=== PATIENT | female | born 1990 | race American Indian/Alaskan Native ===

== ENCOUNTER 2020-08-30 20:35 | Inpatient (IN) | payer MEDICAID ==
[2020-08-30] MEDS ORDERED: LIDOCAINE (2%) 20 MG/1 ML VIAL 20 ML MDV INFILTRATI ONE (22:46)
[2020-08-30] MEDS ORDERED: MINERAL OIL 30 ML ORAL LIQD PO PRN (22:46)
[2020-08-30] MEDS ORDERED: TERBUTALINE 1 MG/1 ML INJ SUB-Q PRN (22:46)
[2020-08-30] MEDS ORDERED: OXYTOCIN DRIP 30,000 MILLIUNITS/500 ML BAG IV ONE (23:01)
--- NOTE | 2020-08-30 23:11 | History and Physical Report ---
History of Present Illness Date of examination: 08/30/20 Date of admission: 08/30/20 20:35 Chief complaint: Here for IOL. History of present illness: 29 year old presents for scheduled induction of labor. Patient received care at [facility] and records are available. LMP 12/01/2019. EDC 09/06/2020. significant for the following: Obesity (BMI 55), anemia (supplemented with iron), chronic hypertension (on Labetalol and LDA), asthma, rubella nonimmune, gestational diabetes (pt. noncompliant with SMBG and ADA diet). labs are as follows: AB positive, antibody screen negative, rubella nonimmune, pap smear normal, hepatitis B surface antigen negative, HIV negative, RPR nonreactive, varicella immune, chlamydia negative, gonorrhea negative, trichomonas negative, hemoglobin electrophoresis AA, AFP negative, 1 hour sugar test 195, 3 hour OGTT 101, 205, 168, 68, GBS negative. 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 denies: smoking, alcohol abuse, prescription drug abuse, IV drug use - Obstetrical History Expected Date of Delivery: 09/06/20 Actual Gestation: 39 Week(s) 0 Day(s) : 1 Para: 0 Hx # Term Pregnancies: 0 Number of Pregnancies: 0 Spontaneous Abortions: 0 Induced : 0 Number of Living Children: 0 Medications and Allergies Allergies Allergy/AdvReac Type Severity Reaction Status Date / Time No Known Allergies Allergy Verified 08/30/20 22:07 Active Meds: Active Medications Ephedrine Sulfate (Ephedrine Sulfate) 10 mg IV Q2M PRN PRN Reason: Hypotension Fentanyl (Sublimaze) 100 mcg IV Q2H PRN PRN Reason: Pain,Severe (7-10) LABOR PAIN Oxytocin/Sodium Chloride (Pitocin/Ns 30 Unit/500ml) 30 units in 500 mls @ 2 mls/hr IV TITR HILARY; Protocol Lactated Ringer's (Lactated Ringers) 1,000 mls @ 125 mls/hr IV DIRECT HILARY Labetalol HCl (Labetalol) 100 mg PO BID HILARY Mineral Oil (Mineral Oil) 30 ml PO QHS PRN PRN Reason: Constipation Terbutaline Sulfate (Brethine) 0.25 mg SUB-Q ONCE PRN PRN Reason: Hyperstimulation/Hypertonicity Review of Systems All systems: negative (occasional contractions) - Vital Signs Vital signs: Vital Signs Pulse BP 121 H 136/82 08/30/20 21:10 08/30/20 21:10 Temp Pulse Resp BP Pulse Ox 98.7 F 105 H 18 124/87 08/30/20 21:29 08/30/20 22:56 08/30/20 21:29 08/30/20 22:56 - Physical Exam Abdomen: Positive: normal appearance, soft. Negative: distention, tenderness, guarding, rigidity Genitourinary (Female): Positive: normal external genitalia, normal perenium. Negative: perineal/vulvar lesions (no lesions noted on careful exam with bright light upon admission) Vagina: Positive: normal moisture Uterus: Positive: enlarged. Negative: tender Anus/Rectum: Positive: normal perianal skin Extremities: Positive: normal - Obstetrical FHR: category 1 Uterine Contraction Monitor Mode: External Cervical Dilatation: 0.5 Cervical Effacement Percentage: 30 station: -4 Uterine Contraction Pattern: Irregular Uterine Contraction Intensity: Mild Results Abnormal lab results 08/30/20 Range/Units 22:36 POC Glucose 127 H (70-105) mg/dL All other labs normal. Assessment and Plan A: at 39 weeks. Gestational diabetes. Chronic hypertension. Class 3 obesity. GBS negative. P: Admit. Continuous EFM. Cervical ripening and induction of labor. Discussed with patient risks and benefits of cervical ripening and induction of labor. Patient consented to cervical ripening and induction of labor. Consult with MD adams: this patient.
[2020-08-30] MEDS: LACTATED RINGERS 1,000 ML IV SCH (23:23)
[2020-08-31 00:12] LABS: Hematocrit 37.5 % (30.3-42.9); Hemoglobin 12.4 gm/dl (10.1-14.3); Mean Corpuscular HGB Conc 33 % (30-34); Mean Corpuscular Volume 77 fl (79-97); Platelet Count 311 K/mm3 (140-440); Red Blood Count 4.88 M/mm3 (3.65-5.03); Red Cell Distribution Width 16.7 % (13.2-15.2)
[2020-08-31] MEDS: OXYTOCIN DRIP 30 UNITS/500 ML BAG IV SCH ×2 (00:17→15:41)
[2020-08-31 00:37] LABS: Alanine Aminotransferase 22 units/L (7-56); Albumin 3.2 g/dL (3.9-5); Blood Urea Nitrogen 8 mg/dL (7-17); Calcium 9.6 mg/dL (8.4-10.2); Hemolysis Index 0
[2020-08-31 00:47] LABS: BUN/Creatinine Ratio 16
--- NOTE | 2020-08-31 02:03 | Ultrasound Report ---
Obstetrical ultrasound follow-up INDICATION: presentation. well-being FINDINGS: The biparietal diameter measures 8.9 cm measuring 36 weeks and 1 day. Head circumference me asures 31.7 cm corresponding to 35 weeks and 4 days. The abdominal circumference measures 34.4 cm cor responding to 38 weeks and 2 days. Femur length is 6.5 cm corresponding to 33 weeks and 2 days. The estimated weight is 2978 g. The fetus is in the cephalic position. HUMBERTO is decreased measuri ng 4.5 cm. heart rate is 141 bpm. The cervical length was measured at 4.1 cm IMPRESSION: Decreased HUMBERTO 4.5 cm, as outlined above. Signer Name: Giovanny Harvey MD Signed: 08/31/2020 1:58 AM Workstation Name: [id number]
[2020-08-31] MEDS: LACTATED RINGERS 1,000 ML IV SCH ×3 (04:37→21:09)
--- NOTE | 2020-08-31 12:40 | Progress Note ---
Assessment and Plan A: at 39 1/7 weeks gestation. GDM. MO. CHTN. P: Continue cervical ripening. Continuous EFM. Subjective - Subjective Date of service: 08/31/20 Principal diagnosis: at 39 weeks, 1 day gestation; IOL Interval history: 39 weeks, 1 day gestation. Being induced for chronic hypertension, MO, and GDM. Patient reports: movement normal, contractions, no new complaints, no loss of fluid, no vaginal bleeding Objective - Vital Signs Vital Signs: Vital Signs - 12hr 08/31/20 08/31/20 08/31/20 00:55 01:26 02:04 Temperature Pulse Rate 92 H 100 H 97 H Blood Pressure 116/64 107/56 134/86 08/31/20 08/31/20 08/31/20 02:25 02:56 03:26 Temperature Pulse Rate 95 H 97 H 94 H Blood Pressure 121/71 112/64 130/66 08/31/20 08/31/20 08/31/20 04:00 04:26 04:56 Temperature 98.2 F Pulse Rate 97 H 100 H 100 H Blood Pressure 101/59 111/62 115/63 08/31/20 08/31/20 08/31/20 05:26 05:57 06:26 Temperature Pulse Rate 106 H 100 H 97 H Blood Pressure 118/60 126/67 118/60 08/31/20 08/31/20 08/31/20 06:55 07:26 07:56 Temperature Pulse Rate 96 H 107 H 103 H Blood Pressure 143/91 138/81 129/84 08/31/20 08/31/20 08/31/20 08:26 08:56 09:35 Temperature Pulse Rate 88 97 H 110 H Blood Pressure 127/69 109/68 136/76 08/31/20 08/31/20 08/31/20 09:56 10:14 10:26 Temperature Pulse Rate 97 H 94 H 106 H Blood Pressure 133/76 123/72 112/57 08/31/20 08/31/20 08/31/20 10:56 11:25 11:56 Temperature Pulse Rate 103 H 103 H 96 H Blood Pressure 136/75 121/71 121/60 08/31/20 12:27 Temperature Pulse Rate 94 H Blood Pressure 130/57 - Exam Abdomen: Present: normal appearance, soft. Absent: distention, tenderness, guarding, rigidity Uterus: Present: normal, fundal height above umbilicus. Absent: tenderness FHR: category 1 Uterine Contraction Monitor Mode: External Uterine Contraction Pattern: Irregular Uterine Contraction Intensity: Mild - Labs Labs: Abnormal Labs 08/30/20 08/30/20 08/30/20 22:36 22:53 23:53 WBC 11.4 H MCV 77 L MCH 25 L RDW 16.7 H Carbon Dioxide 18 L Creatinine 0.5 L Glucose 130 H POC Glucose 127 H Alkaline Phosphatase 142 H Lactate Dehydrogenase 193 H Total Protein 6.0 L Albumin 3.2 L Laboratory Results - last 24 hr 08/30/20 08/30/20 08/30/20 22:36 22:46 22:53 WBC RBC Hgb Hct MCV MCH MCHC RDW Plt Count Sodium 137 Potassium 4.0 Chloride 103.1 Carbon Dioxide 18 L Anion Gap 20 BUN 8 Creatinine 0.5 L Estimated GFR > 60 BUN/Creatinine Ratio 16 Glucose 130 H POC Glucose 127 H Hemoglobin A1c Calcium 9.6 Total Bilirubin 0.20 AST 21 ALT 22 Alkaline Phosphatase 142 H Lactate Dehydrogenase 193 H Total Protein 6.0 L Albumin 3.2 L Albumin/Globulin Ratio 1.1 Blood Type AB POSITIVE Antibody Screen Negative 08/30/20 08/30/20 08/31/20 22:53 23:53 07:28 WBC 11.4 H RBC 4.88 Hgb 12.4 Hct 37.5 MCV 77 L MCH 25 L MCHC 33 RDW 16.7 H Plt Count 311 Sodium Potassium Chloride Carbon Dioxide Anion Gap BUN Creatinine Estimated GFR BUN/Creatinine Ratio Glucose POC Glucose 83 Hemoglobin A1c 5.9 Calcium Total Bilirubin AST ALT Alkaline Phosphatase Lactate Dehydrogenase Total Protein Albumin Albumin/Globulin Ratio Blood Type Antibody Screen 08/31/20 11:46 WBC RBC Hgb Hct MCV MCH MCHC RDW Plt Count Sodium Potassium Chloride Carbon Dioxide Anion Gap BUN Creatinine Estimated GFR BUN/Creatinine Ratio Glucose POC Glucose 85 Hemoglobin A1c Calcium Total Bilirubin AST ALT Alkaline Phosphatase Lactate Dehydrogenase Total Protein Albumin Albumin/Globulin Ratio Blood Type Antibody Screen
--- NOTE | 2020-08-31 22:59 | Event Note ---
Date: 08/31/20 SVE /-3/soft/posterior.
--- NOTE | 2020-09-01 09:06 | Progress Note ---
Assessment and Plan A: at 39 weeks, 2 days gestation. IOL for chronic hypertension, MO, and GDM. P: Continuous EFM. Continue cervical ripening/IOL. Monitor blood pressure and blood sugars. Subjective - Subjective Date of service: 09/01/20 Principal diagnosis: at 39 weeks, 2 day gestation; IOL Interval history: 39 weeks, 2 day gestation. Being induced for chronic hypertension, MO, and GDM. Patient reports: movement normal, contractions, no new complaints, no loss of fluid, no vaginal bleeding Objective - Vital Signs Vital Signs: Vital Signs - 12hr 08/31/20 08/31/20 08/31/20 22:09 22:14 22:19 Temperature Pulse Rate 99 H 117 H 120 H Respiratory Rate Blood Pressure 140/77 O2 Sat by Pulse 99 99 99 Oximetry 08/31/20 08/31/20 08/31/20 22:24 22:26 22:29 Temperature Pulse Rate 117 H 111 H 106 H Respiratory Rate Blood Pressure 109/55 O2 Sat by Pulse 97 98 Oximetry 08/31/20 08/31/20 08/31/20 22:34 22:39 22:44 Temperature Pulse Rate 116 H 107 H 111 H Respiratory Rate Blood Pressure O2 Sat by Pulse 99 99 99 Oximetry 08/31/20 08/31/20 08/31/20 22:49 22:54 22:56 Temperature Pulse Rate 107 H 111 H 100 H Respiratory Rate Blood Pressure 118/56 O2 Sat by Pulse 100 100 Oximetry 08/31/20 08/31/20 08/31/20 22:59 23:04 23:09 Temperature Pulse Rate 105 H 113 H 102 H Respiratory Rate Blood Pressure O2 Sat by Pulse 100 100 100 Oximetry 08/31/20 08/31/20 08/31/20 23:14 23:19 23:24 Temperature Pulse Rate 104 H 109 H 101 H Respiratory Rate Blood Pressure O2 Sat by Pulse 98 98 99 Oximetry 08/31/20 08/31/20 08/31/20 23:26 23:29 23:34 Temperature Pulse Rate 104 H 114 H 104 H Respiratory Rate Blood Pressure 108/52 O2 Sat by Pulse 100 100 Oximetry 08/31/20 08/31/20 08/31/20 23:39 23:44 23:49 Temperature Pulse Rate 106 H 106 H 107 H Respiratory Rate Blood Pressure O2 Sat by Pulse 99 98 99 Oximetry 1008/31/20 08/31/20 23:54 23:56 23:59 Temperature Pulse Rate 104 H 102 H 106 H Respiratory Rate Blood Pressure 120/58 O2 Sat by Pulse 100 100 Oximetry 09/01/20 09/01/20 09/01/20 00:04 00:09 00:14 Temperature Pulse Rate 110 H 110 H 104 H Respiratory Rate Blood Pressure O2 Sat by Pulse 100 100 100 Oximetry 09/01/20 09/01/20 09/01/20 00:19 00:24 00:26 Temperature Pulse Rate 106 H 77 101 H Respiratory Rate Blood Pressure 109/57 O2 Sat by Pulse 100 82 L Oximetry 09/01/20 09/01/20 09/01/20 00:29 00:34 00:39 Temperature Pulse Rate 105 H 105 H 97 H Respiratory Rate Blood Pressure O2 Sat by Pulse 100 99 100 Oximetry 09/01/20 09/01/20 09/01/20 00:44 00:49 00:54 Temperature Pulse Rate 102 H 105 H 111 H Respiratory Rate Blood Pressure O2 Sat by Pulse 100 100 100 Oximetry 09/01/20 09/01/20 09/01/20 00:56 00:59 01:01 EST Temperature Pulse Rate 105 H 105 H 103 H Respiratory Rate Blood Pressure 112/62 O2 Sat by Pulse 100 100 Oximetry 09/01/20 09/01/20 09/01/20 01:04 EST 01:06 EST 01:09 EST Temperature Pulse Rate 102 H 97 H 98 H Respiratory Rate Blood Pressure O2 Sat by Pulse 100 99 100 Oximetry 09/01/20 09/01/20 09/01/20 01:11 EST 01:16 EST 01:21 EST Temperature Pulse Rate 113 H 95 H 115 H Respiratory Rate Blood Pressure O2 Sat by Pulse 100 100 91 Oximetry 09/01/20 09/01/20 09/01/20 01:25 EST 01:26 EST 01:28 EST Temperature Pulse Rate 104 H 104 H Respiratory Rate Blood Pressure 115/62 120/65 O2 Sat by Pulse 100 91 Oximetry 09/01/20 09/01/20 09/01/20 01:31 EST 01:36 EST 01:41 EST Temperature Pulse Rate 99 H 102 H 102 H Respiratory Rate Blood Pressure O2 Sat by Pulse 100 99 100 Oximetry 09/01/20 09/01/20 09/01/20 01:46 EST 01:51 EST 01:55 EST Temperature Pulse Rate 101 H 102 H 105 H Respiratory Rate Blood Pressure 118/60 O2 Sat by Pulse 100 100 Oximetry 09/01/20 09/01/20 09/01/20 01:56 EST 02:00 02:05 Temperature Pulse Rate 105 H 111 H 102 H Respiratory Rate Blood Pressure O2 Sat by Pulse 100 100 100 Oximetry 09/01/20 09/01/20 09/01/20 02:10 02:15 02:20 Temperature Pulse Rate 99 H 97 H 94 H Respiratory Rate Blood Pressure O2 Sat by Pulse 100 99 100 Oximetry 09/01/20 09/01/20 09/01/20 02:25 02:26 02:30 Temperature Pulse Rate 103 H 96 H 94 H Respiratory Rate Blood Pressure 124/65 O2 Sat by Pulse 100 100 Oximetry 09/01/20 09/01/20 09/01/20 02:35 02:40 02:45 Temperature Pulse Rate 92 H 95 H 93 H Respiratory Rate Blood Pressure O2 Sat by Pulse 100 100 99 Oximetry 09/01/20 09/01/20 09/01/20 02:50 02:55 02:56 Temperature Pulse Rate 108 H 105 H 101 H Respiratory Rate Blood Pressure 121/75 O2 Sat by Pulse 100 100 Oximetry 09/01/20 09/01/20 09/01/20 03:00 03:05 03:10 Temperature Pulse Rate 94 H 96 H 96 H Respiratory Rate Blood Pressure O2 Sat by Pulse 99 99 100 Oximetry 09/01/20 09/01/20 09/01/20 03:11 03:15 03:27 Temperature Pulse Rate 103 H 125 H Respiratory Rate Blood Pressure O2 Sat by Pulse 83 L 100 100 Oximetry 09/01/20 09/01/20 09/01/20 03:32 03:37 03:42 Temperature Pulse Rate 111 H 119 H 101 H Respiratory Rate Blood Pressure O2 Sat by Pulse 99 99 99 Oximetry 09/01/20 09/01/20 09/01/20 03:47 03:52 03:57 Temperature Pulse Rate 103 H 105 H 115 H Respiratory Rate Blood Pressure O2 Sat by Pulse 100 100 100 Oximetry 09/01/20 09/01/20 09/01/20 04:02 04:07 04:12 Temperature Pulse Rate 100 H 101 H 100 H Respiratory Rate Blood Pressure O2 Sat by Pulse 100 100 100 Oximetry 09/01/20 09/01/2020 04:17 04:22 04:26 Temperature Pulse Rate 101 H 102 H 102 H Respiratory Rate Blood Pressure 129/58 O2 Sat by Pulse 99 99 Oximetry 09/01/20 09/01/20 09/01/20 04:27 04:32 04:37 Temperature Pulse Rate 103 H 96 H 99 H Respiratory Rate Blood Pressure O2 Sat by Pulse 100 99 99 Oximetry 09/01/20 09/01/20 09/01/20 04:42 04:47 04:52 Temperature Pulse Rate 99 H 103 H 97 H Respiratory Rate Blood Pressure O2 Sat by Pulse 99 98 99 Oximetry 09/01/20 09/01/20 09/01/20 04:56 04:57 05:02 Temperature Pulse Rate 105 H 104 H 92 H Respiratory Rate Blood Pressure 125/71 O2 Sat by Pulse 100 100 Oximetry 09/01/20 09/01/20 09/01/20 05:07 05:12 05:17 Temperature Pulse Rate 101 H 102 H 93 H Respiratory Rate Blood Pressure O2 Sat by Pulse 99 99 98 Oximetry 09/01/20 09/01/20 09/01/20 05:22 05:31 05:36 Temperature Pulse Rate 93 H 104 H 98 H Respiratory Rate Blood Pressure O2 Sat by Pulse 100 100 100 Oximetry 09/01/20 09/01/20 09/01/20 05:41 05:46 05:51 Temperature Pulse Rate 103 H 98 H 101 H Respiratory Rate Blood Pressure O2 Sat by Pulse 100 100 99 Oximetry 09/01/20 09/01/20 09/01/20 05:56 06:01 06:06 Temperature Pulse Rate 100 H 99 H 92 H Respiratory Rate Blood Pressure 109/58 O2 Sat by Pulse 100 99 100 Oximetry 09/01/20 09/01/20 09/01/20 06:11 06:16 06:21 Temperature Pulse Rate 94 H 104 H 97 H Respiratory Rate Blood Pressure O2 Sat by Pulse 100 100 99 Oximetry 09/01/20 09/01/20 09/01/20 06:26 06:31 06:36 Temperature Pulse Rate 97 H 93 H 98 H Respiratory Rate Blood Pressure 109/60 O2 Sat by Pulse 100 100 98 Oximetry 09/01/20 09/01/20 09/01/20 06:41 06:46 06:56 Temperature Pulse Rate 93 H 107 H 103 H Respiratory Rate Blood Pressure 129/59 O2 Sat by Pulse 100 99 100 Oximetry 09/01/20 09/01/20 09/01/20 07:01 07:06 07:11 Temperature Pulse Rate 106 H 98 H 98 H Respiratory Rate Blood Pressure O2 Sat by Pulse 99 99 99 Oximetry 09/01/20 09/01/20 09/01/20 07:12 07:16 07:21 Temperature 98.4 F Pulse Rate 98 H 104 H Respiratory 20 Rate Blood Pressure O2 Sat by Pulse 99 99 Oximetry 09/01/20 09/01/20 09/01/20 07:25 07:26 07:31 Temperature Pulse Rate 96 H 97 H 102 H Respiratory Rate Blood Pressure 118/68 O2 Sat by Pulse 99 99 Oximetry 09/01/20 09/01/20 09/01/20 07:36 07:41 07:46 Temperature Pulse Rate 96 H 95 H 105 H Respiratory Rate Blood Pressure O2 Sat by Pulse 100 100 98 Oximetry 09/01/20 09/01/20 09/01/20 07:51 07:56 08:01 Temperature Pulse Rate 105 H 108 H 98 H Respiratory Rate Blood Pressure 132/83 O2 Sat by Pulse 100 100 99 Oximetry 09/01/20 09/01/20 09/01/20 08:06 08:14 08:19 Temperature Pulse Rate 103 H 108 H Respiratory Rate Blood Pressure O2 Sat by Pulse 98 100 99 Oximetry 09/01/20 09/01/20 09/01/20 08:24 08:25 08:29 Temperature Pulse Rate 96 H 107 H 98 H Respiratory Rate Blood Pressure 129/73 O2 Sat by Pulse 99 98 Oximetry 09/01/20 09/01/20 09/01/20 08:34 08:39 08:44 Temperature Pulse Rate 103 H 94 H 96 H Respiratory Rate Blood Pressure O2 Sat by Pulse 98 98 98 Oximetry 09/01/20 09/01/20 08:49 08:57 Temperature Pulse Rate 102 H 112 H Respiratory Rate Blood Pressure 134/77 O2 Sat by Pulse 100 Oximetry - Exam Narrative Exam: Patient declined cervical exam this morning. Abdomen: Present: normal appearance, soft. Absent: distention, tenderness, guarding, rigidity Uterus: Present: normal, fundal height above umbilicus. Absent: tenderness Uterine Contraction Monitor Mode: External Uterine Contraction Pattern: Irregular Uterine Contraction Intensity: Moderate - Labs Labs: Abnormal Labs 10/08/30/20 08/30/20 22:36 22:53 23:53 WBC 11.4 H MCV 77 L MCH 25 L RDW 16.7 H Carbon Dioxide 18 L Creatinine 0.5 L Glucose 130 H POC Glucose 127 H Alkaline Phosphatase 142 H Lactate Dehydrogenase 193 H Total Protein 6.0 L Albumin 3.2 L 08/31/20 19:36 WBC MCV MCH RDW Carbon Dioxide Creatinine Glucose POC Glucose 69 L Alkaline Phosphatase Lactate Dehydrogenase Total Protein Albumin Laboratory Results - last 24 hr 08/31/20 08/31/20 08/31/20 11:46 15:19 19:36 POC Glucose 85 97 69 L 08/31/20 09/01/20 09/01/20 21:23 01:45 EST 05:57 POC Glucose 90 98 78
[2020-09-01] MEDS: LACTATED RINGERS 1,000 ML IV SCH ×2 (10:55→18:27)
--- NOTE | 2020-09-01 14:13 | Event Note ---
Date: 09/01/20 SVE /-3/soft/posterior.
[2020-09-01] MEDS: OXYTOCIN DRIP 30 UNITS/500 ML BAG IV SCH (20:00)
[2020-09-01] MEDS ORDERED: hydrOXYzine PAMOATE 25 MG CAP PO ONE (21:00)
[2020-09-02] MEDS: LACTATED RINGERS 1,000 ML IV SCH ×4 (02:34→16:28)
[2020-09-02] MEDS: fentaNYL 100 MCG/2 ML INJ IV PRN ×2 (04:58→07:22)
--- NOTE | 2020-09-02 10:36 | Progress Note ---
Assessment and Plan A:IUP @ 39 01/05 Category I Tracing Morbid Obesity GDM Poor Pain Control GBS Negative P: Continue Pitocin Induction AROM Internals X 2 Stadol IV/ Prepare for Epidural Continue Accuchecks as ordered Subjective - Subjective Date of service: 09/02/20 Principal diagnosis: at 39 weeks, 2 day gestation; IOL Patient reports: movement normal, contractions (Poor Pain Control; Re questing epidural anesthesia), no new complaints, no loss of fluid, no vaginal bleeding Objective - Vital Signs Vital Signs: Vital Signs - 12hr 09/01/20 09/01/20 09/01/20 22:34 22:39 23:01 Temperature Pulse Rate 97 H 97 H 111 H Respiratory Rate Blood Pressure Blood Pressure [Right] O2 Sat by Pulse 99 100 100 Oximetry 09/01/20 09/01/20 09/01/20 23:06 23:11 23:16 Temperature Pulse Rate 101 H 102 H 104 H Respiratory Rate Blood Pressure Blood Pressure [Right] O2 Sat by Pulse 99 100 100 Oximetry 09/01/20 09/01/20 09/01/20 23:21 23:26 23:31 Temperature Pulse Rate 104 H 102 H 102 H Respiratory Rate Blood Pressure 117/64 Blood Pressure [Right] O2 Sat by Pulse 100 97 99 Oximetry 09/01/20 09/01/20 09/01/20 23:36 23:41 23:46 Temperature Pulse Rate 99 H 101 H 110 H Respiratory Rate Blood Pressure Blood Pressure [Right] O2 Sat by Pulse 100 99 100 Oximetry 09/01/20 09/01/20 09/01/20 23:51 23:55 23:56 Temperature Pulse Rate 95 H 93 H 97 H Respiratory Rate Blood Pressure 118/68 Blood Pressure [Right] O2 Sat by Pulse 98 97 Oximetry 09/02/20 09/02/20 09/02/20 00:01 00:06 00:14 Temperature Pulse Rate 107 H 97 H 110 H Respiratory Rate Blood Pressure Blood Pressure [Right] O2 Sat by Pulse 99 100 100 Oximetry 09/02/20 09/02/20 09/02/20 00:19 00:24 00:25 Temperature Pulse Rate 97 H 105 H 94 H Respiratory Rate Blood Pressure 113/60 Blood Pressure [Right] O2 Sat by Pulse 98 99 Oximetry 09/02/20 09/02/20 09/02/20 00:29 00:34 00:39 Temperature Pulse Rate 98 H 103 H 98 H Respiratory Rate Blood Pressure Blood Pressure [Right] O2 Sat by Pulse 98 98 98 Oximetry 09/02/20 09/02/20 09/02/20 00:44 00:49 00:54 Temperature Pulse Rate 100 H 104 H 102 H Respiratory Rate Blood Pressure Blood Pressure [Right] O2 Sat by Pulse 99 99 91 Oximetry 09/02/20 09/02/20 09/02/20 00:56 00:59 01:04 Temperature Pulse Rate 96 H 98 H 99 H Respiratory Rate Blood Pressure 124/67 Blood Pressure [Right] O2 Sat by Pulse 97 97 Oximetry 09/02/20 09/02/20 09/02/20 01:09 01:14 01:19 Temperature Pulse Rate 100 H 102 H 92 H Respiratory Rate Blood Pressure Blood Pressure [Right] O2 Sat by Pulse 96 97 99 Oximetry 09/02/20 09/02/20 09/02/20 01:24 01:26 01:29 Temperature Pulse Rate 100 H 96 H 100 H Respiratory Rate Blood Pressure 148/65 Blood Pressure [Right] O2 Sat by Pulse 97 97 Oximetry 09/02/20 09/02/20 09/02/20 01:34 01:39 01:44 Temperature Pulse Rate 97 H 99 H 98 H Respiratory Rate Blood Pressure Blood Pressure [Right] O2 Sat by Pulse 97 97 97 Oximetry 09/02/20 09/02/20 09/02/20 01:55 02:00 02:05 Temperature Pulse Rate 114 H 102 H 101 H Respiratory Rate Blood Pressure Blood Pressure [Right] O2 Sat by Pulse 99 99 99 Oximetry 09/02/20 09/02/20 09/02/20 02:10 03:43 03:44 Temperature Pulse Rate 101 H 25 L 110 H Respiratory Rate Blood Pressure 128/62 Blood Pressure [Right] O2 Sat by Pulse 100 82 L 99 Oximetry 09/02/20 09/02/20 09/02/20 03:49 03:54 03:55 Temperature Pulse Rate 101 H 100 H 100 H Respiratory Rate Blood Pressure 130/73 Blood Pressure [Right] O2 Sat by Pulse 99 99 Oximetry 09/02/20 09/02/20 09/02/20 03:59 04:04 04:09 Temperature Pulse Rate 102 H 96 H 102 H Respiratory Rate Blood Pressure Blood Pressure [Right] O2 Sat by Pulse 99 99 99 Oximetry 09/02/20 09/02/20 09/02/20 04:14 04:19 04:24 Temperature Pulse Rate 103 H 103 H 106 H Respiratory Rate Blood Pressure Blood Pressure [Right] O2 Sat by Pulse 99 98 99 Oximetry 09/02/20 09/02/20 09/02/20 04:32 04:37 04:42 Temperature Pulse Rate 119 H 104 H 100 H Respiratory Rate Blood Pressure Blood Pressure [Right] O2 Sat by Pulse 99 99 99 Oximetry 09/02/20 09/02/20 09/02/20 04:47 04:58 05:04 Temperature Pulse Rate 109 H 99 H Respiratory 18 Rate Blood Pressure Blood Pressure [Right] O2 Sat by Pulse 99 98 Oximetry 09/02/20 09/02/20 09/02/20 05:09 05:14 05:19 Temperature Pulse Rate 96 H 98 H 96 H Respiratory Rate Blood Pressure Blood Pressure [Right] O2 Sat by Pulse 97 97 97 Oximetry 09/02/20 09/02/20 09/02/20 05:24 05:26 05:29 Temperature Pulse Rate 98 H 94 H 96 H Respiratory Rate Blood Pressure 96/52 Blood Pressure [Right] O2 Sat by Pulse 99 97 Oximetry 09/02/20 09/02/20 09/02/20 05:34 05:39 05:54 Temperature Pulse Rate 101 H 94 H 102 H Respiratory Rate Blood Pressure Blood Pressure [Right] O2 Sat by Pulse 98 98 99 Oximetry 09/02/20 09/02/20 09/02/20 05:55 05:59 06:04 Temperature Pulse Rate 102 H 97 H 98 H Respiratory Rate Blood Pressure 117/60 Blood Pressure [Right] O2 Sat by Pulse 99 99 Oximetry 09/02/20 09/02/20 09/02/20 06:09 06:14 06:19 Temperature Pulse Rate 111 H 107 H 95 H Respiratory Rate Blood Pressure Blood Pressure [Right] O2 Sat by Pulse 100 100 99 Oximetry 09/02/20 09/02/20 09/02/20 06:24 06:25 06:29 Temperature Pulse Rate 101 H 96 H 95 H Respiratory Rate Blood Pressure 121/55 Blood Pressure [Right] O2 Sat by Pulse 100 99 Oximetry 09/02/20 09/02/20 09/02/20 06:34 06:43 06:46 Temperature Pulse Rate 107 H 62 98 H Respiratory Rate Blood Pressure Blood Pressure [Right] O2 Sat by Pulse 99 0 L 99 Oximetry 09/02/20 09/02/20 09/02/20 06:51 06:55 06:56 Temperature Pulse Rate 86 95 H 96 H Respiratory Rate Blood Pressure 111/60 Blood Pressure [Right] O2 Sat by Pulse 100 96 Oximetry 09/02/20 09/02/20 09/02/20 07:01 07:06 07:11 Temperature Pulse Rate 92 H 101 H 91 H Respiratory Rate Blood Pressure Blood Pressure [Right] O2 Sat by Pulse 98 98 100 Oximetry 09/02/20 09/02/20 09/02/20 07:12 07:16 07:21 Temperature 98.2 F Pulse Rate 102 H 98 H 85 Respiratory 20 Rate Blood Pressure Blood Pressure 111/60 [Right] O2 Sat by Pulse 98 99 99 Oximetry 09/02/20 09/02/20 09/02/20 07:26 07:31 07:36 Temperature Pulse Rate 93 H 90 91 H Respiratory Rate Blood Pressure 107/51 Blood Pressure [Right] O2 Sat by Pulse 95 99 99 Oximetry 09/02/20 09/02/20 09/02/20 07:41 07:46 07:51 Temperature Pulse Rate 98 H 97 H 90 Respiratory Rate Blood Pressure Blood Pressure [Right] O2 Sat by Pulse 98 100 98 Oximetry 09/02/20 09/02/20 09/02/20 08:02 08:07 08:12 Temperature Pulse Rate 95 H 97 H 96 H Respiratory Rate Blood Pressure Blood Pressure [Right] O2 Sat by Pulse 99 100 98 Oximetry 09/02/20 09/02/20 09/02/20 08:17 08:22 08:26 Temperature Pulse Rate 94 H 100 H 93 H Respiratory Rate Blood Pressure 103/50 Blood Pressure [Right] O2 Sat by Pulse 98 98 Oximetry 09/02/20 09/02/20 09/02/20 08:27 08:32 08:37 Temperature Pulse Rate 108 H 92 H 95 H Respiratory Rate Blood Pressure Blood Pressure [Right] O2 Sat by Pulse 97 98 98 Oximetry 09/02/20 09/02/20 09/02/20 08:42 08:47 08:52 Temperature Pulse Rate 95 H 102 H 96 H Respiratory Rate Blood Pressure Blood Pressure [Right] O2 Sat by Pulse 98 100 98 Oximetry - Exam Breasts: normal Lungs: Normal air movement Abdomen: Present: normal appearance, soft Uterus: Present: normal, firm, fundal height above umbilicus FHR: category 1 Uterine Contraction Monitor Mode: Internal Cervical Dilatation: 4 (Large amount of clear fluid upon AROM at 1018) Cervical Effacement Percentage: 60 station: -3 Uterine Contraction Frequency (min): 2.5 Uterine Contraction Pattern: Regular Uterine Tone Measurement Phase: Resting Uterine Contraction Intensity: Moderate - Labs Labs: Abnormal Labs 08/30/20 08/30/20 08/30/20 22:36 22:53 23:53 WBC 11.4 H MCV 77 L MCH 25 L RDW 16.7 H Carbon Dioxide 18 L Creatinine 0.5 L Glucose 130 H POC Glucose 127 H Alkaline Phosphatase 142 H Lactate Dehydrogenase 193 H Total Protein 6.0 L Albumin 3.2 L 08/31/20 09/01/20 09/01/20 19:36 10:18 14:08 WBC MCV MCH RDW Carbon Dioxide Creatinine Glucose POC Glucose 69 L 139 H 67 L Alkaline Phosphatase Lactate Dehydrogenase Total Protein Albumin 09/01/20 09/02/20 20:31 00:21 WBC MCV MCH RDW Carbon Dioxide Creatinine Glucose POC Glucose 118 H 68 L Alkaline Phosphatase Lactate Dehydrogenase Total Protein Albumin Laboratory Results - last 24 hr 09/01/20 09/01/20 09/01/20 14:08 14:45 20:31 POC Glucose 67 L 77 118 H 09/02/20 09/02/20 09/02/20 00:21 04:09 08:23 POC Glucose 68 L 73 89
[2020-09-02] MEDS ORDERED: BUTORPHANOL 2 MG/1 ML INJ IV PRN (11:00)
[2020-09-02] MEDS ORDERED: DEXMEDETOMIDINE 200 MCG/2 ML VIAL IV ONE (11:21)
[2020-09-02] MEDS: ePHEDrine SULFATE 50 MG/1 ML INJ IV PRN ×2 (12:10→12:14)
[2020-09-02] MEDS ORDERED: NALOXONE 2 MG/2 ML INJ IV PRN (12:26)
[2020-09-02] MEDS ORDERED: ePHEDrine SULFATE 50 MG/1 ML INJ IV PRN (12:26)
--- NOTE | 2020-09-02 12:32 | Anesthesia Consultation ---
Anesthesia Consult and Med Hx Date of service: 09/02/20 - Airway Anesthetic Teeth Evaluation: Good ROM Head & Neck: Adequate Mental/Hyoid Distance: Adequate Mallampati Class: Class III Intubation Access Assessment: Possibly Difficult - Pulmonary Exam CTA: Yes - Cardiac Exam Cardiac Exam: RRR - Pre-Operative Health Status ASA Pre-Surgery Classification: ASA3 Proposed Anesthetic Plan: Epidural - Pulmonary Hx Smoking: Yes Hx Asthma: Yes (last used inhaler 08/28/20) Hx Respiratory Symptoms: No SOB: No COPD: No Home Oxygen Therapy: No Hx Pneumonia: No Hx Sleep Apnea: Yes - Cardiovascular System Hx Hypertension: Yes (GHTN with current ) Hx Coronary Artery Disease: No Hx Heart Attack/AMI: No Hx Angina: No Hx Percutaneous Transluminal Coronary Angioplasty (PTCA): No Hx Cardia Arrhythmia: No Hx Pacemaker: No Hx Internal Defibrillator: No Hx Valvular Heart Disease: No Hx Heart Murmur: No Hx Peripheral Vascular Disease: No - Central Nervous System Hx Neuromuscular Disorder: No Hx Seizures: No CVA: No Hx Back Pain: No Hx Psychiatric Problems: No - Gastrointestinal Hx Ulcer: No Hx Gastroesophageal Reflux Disease: Yes - Endocrine Hx Renal Disease: No Hx End Stage Renal Disease: No Hx Cirrhosis: No Hx Liver Disease: No Hx Insulin Dependent Diabetes: No Hx Non-Insulin Dependent Diabetes: No Hx Thyroid Disease: No Hx Hypothyroidism: No Hx Hyperthyroidism: No - Hematic Hx Anemia: No Hx Sickle Cell Disease: No - Other Systems Hx Alcohol Use: Yes (social before ) Hx Substance Use: No Hx Cancer: No Hx Obesity: Yes
[2020-09-02] MEDS: fentaNYL-BUPIV 2 MCG/ML-0.125% 200 MCG/100 ML BAG EPIDURAL SCH ×2 (12:46→20:40)
--- NOTE | 2020-09-02 12:56 | Progress Note ---
Labor Epidural - Labor Epidural Start Time: 11:10 Stop Time: 11:57 Performed by:: TONY BLACKWOOD Procedure: Patient is requesting a laboring epidural for laboring pain. Patient IDed, H&P reviewed, all questions and concerns were answered, and consent was signed. Timeout was performed at bedside. Patient in sitting position. Sterile prep and drape was performed. [3] ml of 1% lidocaine skin wheal at L[3]- L [4]. 18- gauge Tuohy epidural needle was advanced to loss of resistance with air technique 9cm. Negative CSF negative blood. Epidural catheter advanced to [15] centimeters. [NEGATIVE] Aspiration [NEGATIVE] test dose. Sterile dressing applied. Patient tolerated procedure.
[2020-09-02] MEDS ORDERED: hydrOXYzine HCL 25 MG TAB PO STA (18:38)
[2020-09-02] MEDS ORDERED: hydrOXYzine PAMOATE 25 MG CAP PO STA (18:45)
[2020-09-02] MEDS ORDERED: ceFAZolin/Water 2 GM/20 ML 2 GM/20 ML SYRINGE IV ONE (20:17)
[2020-09-02 20:19] LABS: Hematocrit 36.3 % (30.3-42.9); Hemoglobin 11.9 gm/dl (10.1-14.3); Mean Corpuscular HGB Conc 33 % (30-34); Mean Corpuscular Volume 78 fl (79-97); Platelet Count 261 K/mm3 (140-440); Red Blood Count 4.66 M/mm3 (3.65-5.03); Red Cell Distribution Width 16.7 % (13.2-15.2)
[2020-09-02] MEDS ORDERED: BICITRA ORAL LIQD 30ML PO SCH (20:34)
[2020-09-02] MEDS ORDERED: FAMOTIDINE 20 MG/2 ML INJ IV SCH (20:34)
[2020-09-02] MEDS ORDERED: METOCLOPRAMIDE 10 MG/2 ML INJ IV SCH (20:34)
[2020-09-02] MEDS ORDERED: BICITRA ORAL LIQD 30ML ONE (20:35)
[2020-09-02] MEDS ORDERED: OXYTOCIN DRIP 30 UNITS/500 ML BAG IV SCH ×2 (21:00→23:45)
[2020-09-02] MEDS ORDERED: LACTATED RINGERS 1,000 ML IV SCH (21:00)
--- NOTE | 2020-09-02 21:43 | Anesthesia Day of Surgery ---
Anesthesia Day of Surgery - Day of Surgery Patient Examined: Yes Patient H&P Reviewed: Yes Patient is NPO: Yes Beta Blockers: Yes Cardiac Clearance: No Pulmonary Clearance: No Isai's Test: N/A
[2020-09-02] MEDS ORDERED: LIDOCAINE MPF (2%) 20 MG/1 ML VIAL 5 ML ONE (21:45)
[2020-09-02] MEDS ORDERED: WATER FOR IRRIG STERILE 1,500 ML BOTTLE IR ONE (21:58)
[2020-09-02] MEDS ORDERED: SODIUM CHLORIDE 0.9% IRR 1,500 ML BOTTLE IR ONE (21:58)
[2020-09-02] MEDS ORDERED: ceFAZolin 1 GM VIAL ONE (22:29)
[2020-09-02] MEDS ORDERED: ONDANSETRON 4 MG/2 ML INJ ONE (22:32)
[2020-09-02] MEDS ORDERED: OXYTOCIN 10 UNIT/1 ML INJ ONE (22:42)
[2020-09-02] MEDS ORDERED: KETOROLAC 30 MG/1 ML INJ IV ONE (22:45)
[2020-09-02] MEDS ORDERED: KETOROLAC 30 MG/1 ML INJ ONE (23:16)
[2020-09-02] MEDS ORDERED: dexAMETHasone 20 MG/5 ML VIAL ONE (23:17)
[2020-09-02] MEDS ORDERED: BUPIVACAINE/PF (0.5%) 5 MG/1 ML 30 ML VIAL INFILTRATI ONE (23:17)
--- NOTE | 2020-09-02 23:28 | Procedure Note ---
OB Delivery Note - Delivery Date of Delivery: 09/02/20 Surgeon: HARLEY QUIÑONES JR Estimated blood loss: 500cc - Section Preop diagnosis: arrest of dilation, nonreassuring FHR tracing Postop diagnosis: same section procedure: section, primary low transverse Disposition: PACU Complications: none Narrative: Indication: 29-year-old G1 at 39 weeks 3 days complicated by Obesity (BMI 55), anemia (supplemented with iron), chronic hypertension (on Labetalol and LDA), asthma, rubella nonimmune, gestational diabetes (pt. noncompliant with SMBG and ADA diet) status post failed induction of labor for nonreassuring heart tones for primary . Findings: Normal uterus, tubes and ovaries. Clear fluid. No nuchal cord. Delivery male at 2240 Weight 3108 g Height 19 inches Apgars 8/9 EBL 500cc IVF 900cc UOP 200cc Procedure: Patient was taken to the operating room prepped and draped in the usual sterile fashion. Pfannenstiel skin incision was made and carried down to the underlying fascia. Fascia was incised and the incision was distended bilaterally. Rectus fascia was dissected off the rectus muscle superiorly and inferiorly. Peritoneum was identified and entered. Peritoneal incision extended superiorly and inferiorly. The bladder was visualized. The bladder blade was placed. Uterine hysterotomy incision was made and extended bilaterally. The baby was delivered in the typical vertex fashion. Baby was bulb suction at delivery. The cord was cut and clamped and handed off to the team. The placenta was delivered spontaneously. The uterus was exteriorized and cleared of all clots and debris. Uterine incision was closed with a 0 Vicryl in a running locked fashion. Hemablast was applied to the repaired uterine incision with good hemostasis noted. The urine was noted to be clear. Uterus, tubes, and ovaries were returned to the abdominal cavity. Bilateral gutters were cleared and the abdomen and pelvis were irrigated. Good hemostasis noted. The rectus muscle was reapproximated with 2-0 Vicryl. Attention was directed towards the rectus fascia which was reapproximated with 0 PDS in a running fashion. The subcutaneous tissue was irrigated and reapproximated with 2-0 Vicryl in a running fashion. Skin was closed with a 4-0 Vicryl in a subcuticular fashion. The procedure was completed and the patient tolerated the procedure well. All instruments and lap counts were correct x2. - A at 1 minute: 8 at 5 minutes: 9 Gender: Male
[2020-09-02] MEDS ORDERED: SIMETHICONE 80 MG CHEW TAB PO PRN (23:29)
[2020-09-02] MEDS ORDERED: ONDANSETRON 4 MG/2 ML INJ IV PRN (23:29)
[2020-09-02] MEDS ORDERED: SENNOSIDES 8.6 MG TAB PO PRN (23:29)
[2020-09-02] MEDS ORDERED: LANOLIN/ZINC/DIMETHICONE (LANSINOH) 7 GM TP PRN (23:29)
[2020-09-02] MEDS ORDERED: PROMETHAZINE 25 MG RECT SUPP PR PRN (23:29)
[2020-09-02] MEDS ORDERED: NALOXONE 0.4 MG/1 ML INJ IV PRN (23:29)
[2020-09-02] MEDS ORDERED: MAGNESIUM HYDROXIDE (MOM) ORAL LIQD UDC PO PRN (23:29)
[2020-09-02] MEDS ORDERED: WITCH HAZEL/ GLYCERIN PAD TP PRN (23:29)
[2020-09-02] MEDS ORDERED: HYDROCORTISONE 25 MG RECTAL SUPP PR PRN (23:29)
--- NOTE | 2020-09-02 23:55 | Post Anesthesia Evaluation ---
- Post Anesthesia Evaluation Patient Participated: Yes Airway Patent: Yes Stable Respiratory Function: Yes Nausea/Vomiting: No Temp > 96.8F: Yes Pain Manageable: Yes Adequeate Hydration: Yes Anesthesia Complications: No Block Receding Appropriately: Yes Patient on Ventilator: No
--- NOTE | 2020-09-02 23:55 | Progress Note ---
Subjective Date of service: 09/02/20 Principal diagnosis: TAP block for post op pain Interval history: Patient consented for TAP block for post surgical pain management. Patient identified, monitors placed, and time out performed. TAP identified bilaterally via ultrasound. Skin prepped bilaterally with [chlorhexidine] and [22g stimuplex] needle advanced to the TAP. [Marcaine 0.2% 35ml] injected under ultrasound guidance on the [left] side. [Marcaine 0.2% 35ml] injected under ultrasound guidance on the [right] side. Negative Aspiration Objective - Constitutional Vitals: Vital Signs - 12hr 09/02/20 09/02/20 09/02/20 11:55 11:58 12:00 Temperature Pulse Rate 124 H 108 H 111 H Blood Pressure 177/81 136/77 O2 Sat by Pulse 97 94 97 Oximetry 09/02/20 09/02/20 09/02/20 12:02 12:05 12:08 Temperature Pulse Rate 96 H 101 H 112 H Blood Pressure 131/75 98/48 O2 Sat by Pulse 97 Oximetry 09/02/20 09/02/20 09/02/20 12:10 12:14 12:15 Temperature Pulse Rate 104 H 102 H 101 H Blood Pressure 84/42 O2 Sat by Pulse 98 100 Oximetry 09/02/20 09/02/20 09/02/20 12:19 12:20 12:23 Temperature Pulse Rate 77 79 105 H Blood Pressure 135/75 119/57 O2 Sat by Pulse 100 Oximetry 09/02/20 09/02/20 09/02/20 12:25 12:30 12:33 Temperature Pulse Rate 107 H 123 H 102 H Blood Pressure 90/50 O2 Sat by Pulse 100 97 Oximetry 09/02/20 09/02/20 09/02/20 12:35 12:37 12:40 Temperature Pulse Rate 105 H 105 H 106 H Blood Pressure 92/58 O2 Sat by Pulse 96 97 Oximetry 09/02/20 09/02/20 09/02/20 12:44 12:45 12:47 Temperature Pulse Rate 107 H 109 H 107 H Blood Pressure 110/58 101/56 O2 Sat by Pulse 96 94 Oximetry 09/02/20 09/02/20 09/02/20 12:50 12:52 12:55 Temperature Pulse Rate 109 H 109 H 112 H Blood Pressure 97/54 O2 Sat by Pulse 96 98 Oximetry 09/02/20 09/02/20 09/02/20 13:00 13:04 13:05 Temperature Pulse Rate 120 H 105 H 110 H Blood Pressure 104/55 O2 Sat by Pulse 98 98 Oximetry 09/02/20 09/02/20 09/02/20 13:08 13:10 13:15 Temperature Pulse Rate 110 H 115 H 114 H Blood Pressure 102/51 O2 Sat by Pulse 100 99 Oximetry 09/02/20 09/02/20 09/02/20 13:20 13:24 13:25 Temperature Pulse Rate 106 H 109 H 105 H Blood Pressure 94/55 O2 Sat by Pulse 100 99 Oximetry 09/02/20 09/02/20 09/02/20 13:30 13:35 13:39 Temperature Pulse Rate 89 99 H 98 H Blood Pressure 84/44 O2 Sat by Pulse 97 100 Oximetry 09/02/20 09/02/20 09/02/20 13:40 13:45 13:50 Temperature Pulse Rate 104 H 101 H 98 H Blood Pressure O2 Sat by Pulse 100 100 100 Oximetry 09/02/20 09/02/20 09/02/20 13:54 13:55 14:00 Temperature Pulse Rate 96 H 102 H 88 Blood Pressure 79/42 O2 Sat by Pulse 100 100 Oximetry 09/02/20 09/02/20 09/02/20 14:05 14:10 14:15 Temperature Pulse Rate 105 H 99 H 96 H Blood Pressure 99/53 O2 Sat by Pulse 100 100 100 Oximetry 09/02/20 09/02/20 09/02/20 14:20 14:25 14:30 Temperature Pulse Rate 102 H 91 H 94 H Blood Pressure 97/50 O2 Sat by Pulse 100 98 100 Oximetry 09/02/20 09/02/20 09/02/20 14:35 14:39 14:40 Temperature Pulse Rate 99 H 100 H 98 H Blood Pressure 84/42 O2 Sat by Pulse 100 100 Oximetry 09/02/20 09/02/20 09/02/20 14:45 14:50 14:54 Temperature Pulse Rate 101 H 92 H 96 H Blood Pressure 88/44 O2 Sat by Pulse 100 100 Oximetry 09/02/20 09/02/20 09/02/20 14:55 15:00 15:05 Temperature Pulse Rate 97 H 102 H 97 H Blood Pressure O2 Sat by Pulse 100 98 98 Oximetry 09/02/20 09/02/20 09/02/20 15:09 15:10 15:15 Temperature Pulse Rate 108 H 105 H 101 H Blood Pressure 87/44 O2 Sat by Pulse 98 97 Oximetry 09/02/20 09/02/20 09/02/20 15:20 15:24 15:25 Temperature Pulse Rate 98 H 100 H 102 H Blood Pressure 86/41 O2 Sat by Pulse 97 99 Oximetry 09/02/20 09/02/20 09/02/20 15:30 15:35 15:39 Temperature Pulse Rate 102 H 99 H 100 H Blood Pressure 106/53 O2 Sat by Pulse 98 98 Oximetry 09/02/20 09/02/20 09/02/20 15:40 15:45 15:50 Temperature Pulse Rate 107 H 96 H 100 H Blood Pressure O2 Sat by Pulse 99 98 97 Oximetry 09/02/20 09/02/20 09/02/20 15:54 15:55 16:00 Temperature Pulse Rate 94 H 101 H 97 H Blood Pressure 96/49 O2 Sat by Pulse 97 98 Oximetry 09/02/20 09/02/20 09/02/20 16:05 16:09 16:10 Temperature Pulse Rate 106 H 99 H 95 H Blood Pressure 90/42 O2 Sat by Pulse 98 99 Oximetry 09/02/20 09/02/20 09/02/20 16:15 16:20 16:24 Temperature Pulse Rate 105 H 107 H 101 H Blood Pressure 90/52 O2 Sat by Pulse 99 99 Oximetry 09/02/20 09/02/20 09/02/20 16:25 16:30 16:35 Temperature Pulse Rate 100 H 101 H 91 H Blood Pressure O2 Sat by Pulse 99 99 99 Oximetry 09/02/20 09/02/20 09/02/20 16:39 16:40 16:45 Temperature Pulse Rate 98 H 99 H 95 H Blood Pressure 95/50 O2 Sat by Pulse 99 99 Oximetry 09/02/20 09/02/20 09/02/20 16:50 16:54 16:55 Temperature Pulse Rate 101 H 104 H 115 H Blood Pressure 98/53 O2 Sat by Pulse 99 99 Oximetry 09/02/20 09/02/20 09/02/20 17:00 17:02 17:05 Temperature Pulse Rate 98 H 80 126 H Blood Pressure O2 Sat by Pulse 100 70 L 100 Oximetry 09/02/20 09/02/20 09/02/20 17:10 17:15 17:20 Temperature Pulse Rate 108 H 113 H 112 H Blood Pressure 95/54 O2 Sat by Pulse 100 99 98 Oximetry 09/02/20 09/02/20 09/02/20 17:25 17:30 17:35 Temperature Pulse Rate 106 H 109 H 108 H Blood Pressure 104/55 O2 Sat by Pulse 98 99 99 Oximetry 09/02/20 09/02/20 09/02/20 17:39 17:40 17:45 Temperature Pulse Rate 108 H 108 H 111 H Blood Pressure 109/52 O2 Sat by Pulse 98 100 Oximetry 09/02/20 09/02/20 09/02/20 17:50 17:54 17:55 Temperature Pulse Rate 118 H 102 H 99 H Blood Pressure 101/57 O2 Sat by Pulse 99 100 Oximetry 09/02/20 09/02/20 09/02/20 18:00 18:05 18:09 Temperature Pulse Rate 110 H 107 H 114 H Blood Pressure 99/54 O2 Sat by Pulse 100 100 Oximetry 09/02/20 09/02/20 09/02/20 18:10 18:15 18:20 Temperature Pulse Rate 116 H 118 H 123 H Blood Pressure O2 Sat by Pulse 100 100 100 Oximetry 09/02/20 09/02/20 09/02/20 18:24 18:25 18:30 Temperature Pulse Rate 117 H 120 H 122 H Blood Pressure 104/59 O2 Sat by Pulse 99 100 Oximetry 09/02/20 09/02/20 09/02/20 18:35 18:39 18:40 Temperature Pulse Rate 109 H 109 H 116 H Blood Pressure 108/58 O2 Sat by Pulse 100 100 Oximetry 09/02/20 09/02/20 09/02/20 18:45 18:48 18:50 Temperature 99.1 F Pulse Rate 123 H 122 H Blood Pressure O2 Sat by Pulse 100 100 Oximetry 09/02/20 09/02/20 09/02/20 18:55 19:00 19:05 Temperature Pulse Rate 117 H 120 H 123 H Blood Pressure 107/57 O2 Sat by Pulse 100 99 99 Oximetry 09/02/20 09/02/20 09/02/20 19:10 19:16 19:21 Temperature Pulse Rate 122 H 115 H 106 H Blood Pressure O2 Sat by Pulse 100 98 99 Oximetry 09/02/20 09/02/20 09/02/20 19:24 19:26 19:31 Temperature Pulse Rate 113 H 105 H 98 H Blood Pressure 105/53 O2 Sat by Pulse 100 100 Oximetry 09/02/20 09/02/20 09/02/20 19:36 19:41 19:46 Temperature Pulse Rate 106 H 118 H 103 H Blood Pressure O2 Sat by Pulse 100 100 100 Oximetry 09/02/20 09/02/20 09/02/20 19:51 19:54 19:56 Temperature Pulse Rate 105 H 101 H 96 H Blood Pressure 117/56 O2 Sat by Pulse 100 99 Oximetry 09/02/20 09/02/20 09/02/20 20:01 20:06 20:42 Temperature 98.8 F Pulse Rate 112 H 109 H Blood Pressure O2 Sat by Pulse 100 100 Oximetry 09/02/20 09/02/20 09/02/20 21:00 21:01 21:05 Temperature Pulse Rate 79 79 127 H Blood Pressure 109/51 O2 Sat by Pulse 79 L 78 L Oximetry 09/02/20 09/02/20 09/02/20 21:06 21:07 21:11 Temperature Pulse Rate 78 71 120 H Blood Pressure O2 Sat by Pulse 86 81 L 100 Oximetry 09/02/20 09/02/20 09/02/20 21:16 21:21 21:26 Temperature Pulse Rate 112 H 131 H 129 H Blood Pressure O2 Sat by Pulse 100 100 100 Oximetry - Labs CBC & Chem 7: 09/02/20 19:50 08/30/20 22:53 Labs: Abnormal lab results 09/02/20 09/02/20 Range/Units 00:21 19:50 WBC 12.7 H (4.5-11.0) K/mm3 MCV 78 L (79-97) fl MCH 26 L (28-32) pg RDW 16.7 H (13.2-15.2) % POC Glucose 68 L (70-105) mg/dL
[2020-09-03] MEDS: KETOROLAC 30 MG/1 ML INJ IV SCH ×3 (01:10→14:30)
[2020-09-03] MEDS: MORPHINE 4 MG/1 ML INJ IV PRN ×2 (04:30→09:04)
[2020-09-03] MEDS: LACTATED RINGERS 1,000 ML IV SCH (04:34)
[2020-09-03] MEDS ORDERED: DIPHtheria,PERTUSSIS(ACELL),TETANUS VACCINE/PF 0.5 ML VIAL IM ONE (06:00)
--- NOTE | 2020-09-03 09:31 | Progress Note ---
Assessment and Plan - Patient Problems (1) Status post primary low transverse section Current Visit: Yes Status: Acute Plan to address problem: Continue routine PP orders Keep dressing clean and dry, remove on POD #2 Anticipate d/c home in 24-48 hrs if stable Subjective - Subjective Date of service: 09/03/20 Principal diagnosis: S/P primary C/S; POD#1 Interval history: See admission H & P; OB operative summary and PP progress notes Patient reports: appetite normal, voiding normally (arora catheter in place), pain well controlled (with medications), no flatus, no bowel movement, no ambulating normally (has not been up yet to ambulate, KARINA hose in place) [place]: doing well, bottle feeding (and ) Objective - Vital Signs Latest vital signs: Vital Signs Temp Pulse Resp BP BP Pulse Ox 09/03/20 07:25 98.1 F 103 H 18 123/62 99 09/03/20 04:52 98.2 F 108 H 20 121/65 99 09/03/20 01:30 99.3 F 102 H 20 120/72 98 09/03/20 00:45 100.0 F H 121 H 14 113/65 09/03/20 00:30 100.1 F H 156 H 14 118/61 98 09/03/20 00:15 100.6 F H 105 H 17 125/66 99 09/02/20 23:51 102 H 19 114/68 98 09/02/20 23:46 100.1 F H 109 H 13 105/60 99 09/02/20 21:26 129 H 100 09/02/20 21:21 131 H 100 09/02/20 21:16 112 H 100 09/02/20 21:11 120 H 100 09/02/20 21:07 71 81 L 09/02/20 21:06 78 86 09/02/20 21:05 127 H 109/51 09/02/20 21:01 79 78 L 09/02/20 21:00 79 79 L 09/02/20 20:42 98.8 F 09/02/20 20:06 109 H 100 09/02/20 20:01 112 H 100 09/02/20 19:56 96 H 99 09/02/20 19:54 101 H 117/56 09/02/20 19:51 105 H 100 09/02/20 19:46 103 H 100 11/02/20 19:41 118 H 100 09/02/20 19:36 106 H 100 09/02/20 19:31 98 H 100 09/02/20 19:26 105 H 100 09/02/20 19:24 113 H 105/53 09/02/20 19:21 106 H 99 09/02/20 19:16 115 H 98 09/02/20 19:10 122 H 100 09/02/20 19:05 123 H 99 09/02/20 19:00 120 H 99 09/02/20 18:55 117 H 107/57 100 09/02/20 18:50 122 H 100 09/02/20 18:48 99.1 F 09/02/20 18:45 123 H 100 09/02/20 18:40 116 H 100 09/02/20 18:39 109 H 108/58 09/02/20 18:35 109 H 100 09/02/20 18:30 122 H 100 09/02/20 18:25 120 H 99 09/02/20 18:24 117 H 104/59 09/02/20 18:20 123 H 100 09/02/20 18:15 118 H 100 09/02/20 18:10 116 H 100 09/02/20 18:09 114 H 99/54 09/02/20 18:05 107 H 100 09/02/20 18:00 110 H 100 09/02/20 17:55 99 H 100 09/02/20 17:54 102 H 101/57 09/02/20 17:50 118 H 99 09/02/20 17:45 111 H 100 09/02/20 17:40 108 H 98 09/02/20 17:39 108 H 109/52 09/02/20 17:35 108 H 99 09/02/20 17:30 109 H 99 09/02/20 17:25 106 H 104/55 98 09/02/20 17:20 112 H 98 09/02/20 17:15 113 H 99 09/02/20 17:10 108 H 95/54 100 09/02/20 17:05 126 H 100 09/02/20 17:02 80 70 L 09/02/20 17:00 98 H 100 09/02/20 16:55 115 H 99 09/02/20 16:54 104 H 98/53 09/02/20 16:50 101 H 99 09/02/20 16:45 95 H 99 09/02/20 16:40 99 H 99 09/02/20 16:39 98 H 95/50 09/02/20 16:35 91 H 99 09/02/20 16:30 101 H 99 09/02/20 16:25 100 H 99 09/02/20 16:24 101 H 90/52 09/02/20 16:20 107 H 99 09/02/20 16:15 105 H 99 09/02/20 16:10 95 H 99 09/02/20 16:09 99 H 90/42 09/02/20 16:05 106 H 98 09/02/20 16:00 97 H 98 09/02/20 15:55 101 H 97 09/02/20 15:54 94 H 96/49 09/02/20 15:50 100 H 97 09/02/20 15:45 96 H 98 09/02/20 15:40 107 H 99 09/02/20 15:39 100 H 106/53 09/02/20 15:35 99 H 98 09/02/20 15:30 102 H 98 09/02/20 15:25 102 H 99 09/02/20 15:24 100 H 86/41 09/02/20 15:20 98 H 97 09/02/20 15:15 101 H 97 09/02/20 15:10 105 H 98 09/02/20 15:09 108 H 87/44 09/02/20 15:05 97 H 98 09/02/20 15:00 102 H 98 09/02/20 14:55 97 H 100 09/02/20 14:54 96 H 88/44 09/02/20 14:50 92 H 100 09/02/20 14:45 101 H 100 09/02/20 14:40 98 H 100 09/02/20 14:39 100 H 84/42 09/02/20 14:35 99 H 100 09/02/20 14:30 94 H 100 09/02/20 14:25 91 H 97/50 98 09/02/20 14:20 102 H 100 09/02/20 14:15 96 H 100 09/02/20 14:10 99 H 99/53 100 09/02/20 14:05 105 H 100 09/02/20 14:00 88 100 09/02/20 13:55 102 H 100 09/02/20 13:54 96 H 79/42 09/02/20 13:50 98 H 100 09/02/20 13:45 101 H 100 09/02/20 13:40 104 H 100 09/02/20 13:39 98 H 84/44 09/02/20 13:35 99 H 100 09/02/20 13:30 89 97 09/02/20 13:25 105 H 99 09/02/20 13:24 109 H 94/55 09/02/20 13:20 106 H 100 09/02/20 13:15 114 H 99 09/02/20 13:10 115 H 100 09/02/20 13:08 110 H 102/51 09/02/20 13:05 110 H 98 09/02/20 13:04 105 H 104/55 09/02/20 13:00 120 H 98 09/02/20 12:55 112 H 98 09/02/20 12:52 109 H 97/54 09/02/20 12:50 109 H 96 09/02/20 12:47 107 H 101/56 94 09/02/20 12:45 109 H 96 09/02/20 12:44 107 H 110/58 09/02/20 12:40 106 H 97 09/02/20 12:37 105 H 92/58 09/02/20 12:35 105 H 96 09/02/20 12:33 102 H 90/50 09/02/20 12:30 123 H 97 09/02/20 12:25 107 H 100 09/02/20 12:23 105 H 119/57 09/02/20 12:20 79 100 09/02/20 12:19 77 135/75 09/02/20 12:15 101 H 100 09/02/20 12:14 102 H 84/42 09/02/20 12:10 104 H 98 09/02/20 12:08 112 H 98/48 09/02/20 12:05 101 H 97 09/02/20 12:02 96 H 131/75 09/02/20 12:00 111 H 136/77 97 09/02/20 11:58 108 H 177/81 94 09/02/20 11:55 124 H 97 09/02/20 11:53 118 H 142/88 09/02/20 11:50 121 H 97 09/02/20 11:48 120 H 142/89 09/02/20 11:45 119 H 97 09/02/20 11:43 122 H 141/76 09/02/20 11:40 115 H 96 09/02/20 11:38 110 H 130/84 09/02/20 11:35 124 H 99 09/02/20 11:30 109 H 99 09/02/20 11:26 115 H 128/73 09/02/20 11:25 104 H 99 09/02/20 11:18 112 H 99 09/02/20 11:13 103 H 99 09/02/20 11:08 101 H 99 09/02/20 11:03 94 H 99 09/02/20 10:58 99 H 98 09/02/20 10:56 102 H 110/56 09/02/20 10:53 106 H 98 09/02/20 10:47 106 H 98 09/02/20 10:42 99 H 98 09/02/20 10:38 22 09/02/20 10:37 100 H 99 09/02/20 10:32 94 H 134/69 99 Intake and Output 09/02/20 09/03/20 09/03/20 23:59 07:59 15:59 Intake Total 0533.949 8905 240 Output Total 1820 500 Balance -328.783 620 240 Intake: IV 9767.236 7417 Lactated Ringers 1,000 ml 481.25 1000 @ 125 mls/hr IV DIRECT [facility] Rx#:[id number] PITOCin/NS 30 UNIT/500ML 9.967 30 units In 500 ml @ 2 mls/hr IV TITR [facility] Rx#: [id number] Oral 120 240 Output: Urine 1820 500 Indwelling Catheter 1050 500 Uretheral (Arora) 320 Other: Total, Intake Amount 120 240 Total, Output Amount 150 500 - Exam Breasts: Present: normal Cardiovascular: Present: Regular rate Lungs: Present: Normal air movement Abdomen: Present: soft, tenderness Uterus: Present: firm, fundal height below umbilicus (U-2) Extremities: Present: edema (slight in bilateral ankles/feet) Incision: Present: dressed (no shadow drainage or bleeding noted) - Labs Labs: Abnormal lab results 09/02/20 09/03/20 Range/Units 19:50 04:58 WBC 12.7 H (4.5-11.0) K/mm3 MCV 78 L (79-97) fl MCH 26 L (28-32) pg RDW 16.7 H (13.2-15.2) % POC Glucose 106 H (70-105) mg/dL
[2020-09-03 14:47] LABS: Hematocrit 32.8 % (30.3-42.9); Hemoglobin 10.5 gm/dl (10.1-14.3)
[2020-09-03] MEDS: IBUPROFEN 800 MG TAB PO PRN (20:46)
[2020-09-04] MEDS: oxyCODONE /ACETAMINOPHEN 5-325MG TAB PO PRN ×2 (03:38→09:27)
[2020-09-04] MEDS: KETOROLAC 30 MG/1 ML INJ IV SCH (04:43)
[2020-09-04] MEDS: IBUPROFEN 800 MG TAB PO PRN ×2 (05:59→12:51)
--- NOTE | 2020-09-04 12:39 | Progress Note ---
Assessment and Plan A: Postop Day 2 CHTN GDM Stable P: Follow routine postop orders Continue Labetalol 100 mg PO BID D/C home today per patient request Subjective - Subjective Date of service: 09/04/20 Principal diagnosis: S/P primary C/S; POD#2 Patient reports: appetite normal, voiding normally, pain well controlled, flatus, bowel movement, ambulating normally : doing well, bottle feeding (and ) Objective - Vital Signs Latest vital signs: Vital Signs Temp Pulse Resp BP BP Pulse Ox 09/04/20 08:08 97.9 F 99 H 20 131/77 09/04/20 04:51 103 H 120/68 99 09/04/20 00:46 98.2 F 113 H 20 108/60 100 09/03/20 21:53 120 H 131/62 09/03/20 21:46 98.2 F 117 H 20 131/62 99 09/03/20 16:05 98.6 F 105 H 18 117/63 99 09/03/20 13:01 98.1 F 94 H 20 122/75 100 Intake and Output 09/03/20 09/04/20 09/04/20 22:59 06:59 14:59 Intake Total 480 480 240 Balance 480 480 240 Intake: Oral 480 480 240 Other: Total, Intake Amount 240 240 240 # Voids Indwelling Catheter 1 Void 1 1 1 # Bowel Movements 1 - Exam Breasts: Present: normal Cardiovascular: Present: Regular rate, Normal S1, Normal S2 Lungs: Present: Clear to auscultation, Normal air movement Abdomen: Present: normal appearance, soft, normal bowel sounds Uterus: Present: normal, firm, fundal height below umbilicus Extremities: Present: normal Incision: Present: normal, dry, intact
--- NOTE | 2020-09-04 12:47 | Discharge Summary ---
Providers - Providers Date of Admission: 08/30/20 20:35 Date of discharge: 09/04/20 Attending physician: LEV GREEN MD Primary care physician: LEV GREEN MD Hospitalization Reason for admission: induction of labor Delivery: Procedure: primary low transverse Incision: normal, dry, intact Other procedures: none complications: none Discharge diagnosis: IUP at term delivered baby: male Condition at discharge: Good Disposition: DC-01 TO HOME OR SELFCARE Plan - Discharge Medications Prescriptions: Ibuprofen [Motrin 800 MG tab] 800 mg PO Q8HR PRN #30 tablet PRN Reason: Pain, Mild (1-3) oxyCODONE /ACETAMINOPHEN [Percocet 5/325] 1 tab PO Q6HR PRN #30 tablet PRN Reason: Pain, Moderate (4-6) - Provider Discharge Summary Activity: routine, no sex for 6 weeks, no heavy lifting 4 weeks, no strenuous exercise Diet: routine Instructions: routine Additional instructions: [] Smoking cessation referral if applicable(refer to patient education folder for contact #) [] Refer to [facility]'s [facility] Booklet Call your doctor immediately for: * Fever > 100.5 * Heavy vaginal bleeding ( >1 pad per hour) * Severe persistent headache * Shortness of breath * Reddened, hot, painful area to leg or breast * Drainage or odor from incision. * Keep incision clean and dry at all times and follow doctor's instructions regarding bathing/showering - Follow up plan Follow up: HARLEY QUIÑONES JR, MD [Staff Physician] - 7 Days
[2020-09-04] MEDS ORDERED: MEASLES, MUMPS & RUBELLA 12,500 UNIT/0.5 ML VACCINE SUB-Q ONE (13:33)
[2020-09-04 14:23] VITALS: BP 132/72
== END 2020-09-04 15:00 | disposition home or self-care (01) | DRG 765 ==
LOC: LD 20:35 → OB 09-03 01:20
PROVIDERS: ADMIT Obstetrics & Gynecology; ATTEND Obstetrics & Gynecology
PROC: 10D00Z1 Extraction of Products of Conception, Low, Open Approach (ICD-10-PCS; principal; 2020-09-02)
PROC: 3E0R3BZ Introduction of Anesthetic Agent into Spinal Canal, Percutaneous Approach (ICD-10-PCS; 2020-09-02)
PROC: 00HU33Z Insertion of Infusion Device into Spinal Canal, Percutaneous Approach (ICD-10-PCS; 2020-09-02)
PROC: 3E0234Z Introduction of Serum, Toxoid and Vaccine into Muscle, Percutaneous Approach (ICD-10-PCS; 2020-09-03)
PROC: 3E0134Z Introduction of Serum, Toxoid and Vaccine into Subcutaneous Tissue, Percutaneous Approach (ICD-10-PCS; 2020-09-03)
DX: O34.211 Maternal care for low transverse scar from previous cesarean delivery (principal); O16.9 Unspecified maternal hypertension, unspecified trimester; Z37.0 Single live birth; O24.419 Gestational diabetes mellitus in pregnancy, unspecified control; Z3A.39 39 weeks gestation of pregnancy; Z23 Encounter for immunization; Z20.828 Contact with and (suspected) exposure to other viral communicable diseases; O99.214 Obesity complicating childbirth; O99.02 Anemia complicating childbirth; O99.52 Diseases of the respiratory system complicating childbirth; O24.429 Gestational diabetes mellitus in childbirth, unspecified control; Z83.3 Family history of diabetes mellitus; Z82.49 Family history of ischemic heart disease and other diseases of the circulatory system; E66.01 Morbid (severe) obesity due to excess calories
CPT/HCPCS: 36415; 76816; 80053; 82962; 83036; 83615; 85014; 85018; 85027; 86850; 86900; 86901; 90471; 90707; 90715; G0378; A6250; J0595; J0690; J1100; J1885; J2270; J2405; J2590; J2765; J3010; J7120; Q0177; U0003